=== PATIENT | male | born 1960 | race Hispanic/Latino ===

== ENCOUNTER 2017-11-10 08:42 | Emergency (ER) | payer OTHER, SELFPAY ==
[2017-11-10 09:15] VITALS: BP 129/67; PULSE 61; RESP 19; TEMP 97; O2SAT 98
--- NOTE | 2017-11-10 10:07 | ED PDOC ---
HPI: CCC, URI, Sore Throat Time Seen by Provider: 11/10/17 09:12 Chief Complaint (Nursing): Cough, Cold, Congestion Chief Complaint (Provider): Sore throat History Per: Patient History/Exam Limitations: no limitations Onset/Duration Of Symptoms: Days (x1 week) Current Symptoms Are (Timing): Still Present Location Of Pain: Throat Associated Symptoms: Fever (mild), Sore Throat (difficulty swallowing), Cough, Nasal Congestion Ear Symptoms: Bilateral: None Severity: Mild Pain Scale Rating Of: 4 Additional Complaint(s): Manan Anguiano is a 57 year old male, with no past medical history, who presents to the emergency department complaining of sore throat, congestion, mild cough and fever onset for x1 week. Patient states he had the flu x1 week ago, He took Nyquil and ampicillin for x2 days with some relief but he is still has difficulty swallowing. He denies any shortness of breath. No further medical complaints. PMD: None provided. Past Medical History Reviewed: Historical Data, Nursing Documentation, Vital Signs Vital Signs: Last Vital Signs Temp 97 F L 11/10/17 09:11 Pulse 61 11/10/17 09:11 Resp 19 11/10/17 09:11 BP 129/67 11/10/17 09:11 Pulse Ox 98 11/10/17 10:10 - Medical History PMH: Kidney Stones - Surgical History Other surgeries: Kidney surgery, left eye retina laser surgery - Family History Family History: States: Unknown Family Hx - Social History Current smoker - smoking cessation education provided: No Alcohol: None Drugs: Denies - Home Medications Home Medications: Ambulatory Orders Medication Instructions Recorded Amoxicillin/Clavulanate [Augmentin 1 tab PO BID #14 tab 11/10/17 875 MG-125 MG Tab] Benzocaine/Menthol [Cepacol Sore 1 each MM TID #20 lozenge 11/10/17 Throat Lozenge] - Allergies Allergies/Adverse Reactions: Allergies Allergy/AdvReac Type Severity Reaction Status Date / Time No Known Allergies Allergy Verified 10/04/13 16:03 Review of Systems ROS Statement: Except As Marked, All Systems Reviewed And Found Negative Constitutional: Positive for: Fever (mild) ENT: Positive for: Nose Congestion, Throat Pain (difficulty swallowing) Respiratory: Positive for: Cough (mild). Negative for: Shortness of Breath Physical Exam - Reviewed Nursing Documentation Reviewed: Yes Vital Signs Reviewed: Yes - Physical Exam Appears: Positive for: Well, Non-toxic, No Acute Distress Head Exam: Positive for: ATRAUMATIC, NORMAL INSPECTION Skin: Positive for: Normal Color, Warm, Dry Eye Exam: Positive for: Normal appearance, EOMI ENT: Positive for: Pharyngeal Erythema Neck: Positive for: Normal, Painless ROM, Supple Cardiovascular/Chest: Positive for: Regular Rate, Rhythm. Negative for: Murmur Respiratory: Positive for: Normal Breath Sounds. Negative for: Respiratory Distress Extremity: Positive for: Normal ROM. Negative for: Deformity, Swelling Neurologic/Psych: Positive for: Alert, Oriented - ECG O2 Sat by Pulse Oximetry: 98 (RA) Pulse Ox Interpretation: Normal Medical Decision Making Medical Decision Making: Initial Impression: URI, Tonsilitis Initial Plan: --Influenza A B --Rapid Strep Group A Antigen --reevaluation Scribe Attestation: Documented by Pako Yi, acting as a scribe for Bethanie Hayes MD Provider Scribe Attestation: All medical record entries made by the Scribe were at my direction and personally dictated by me. I have reviewed the chart and agree that the record accurately reflects my personal performance of the history, physical exam, medical decision making, and the department course for this patient. I have also personally directed, reviewed, and agree with the discharge instructions and disposition. Disposition - Clinical Impression Clinical Impression: URI, acute, Tonsillitis - Patient ED Disposition Is Patient to be Admitted: No Doctor Will See Patient In The: Office Counseled Patient/Family Regarding: Studies Performed, Diagnosis, Need For Followup - Disposition Referrals: [facility] [Outside] Disposition: Routine/Home Disposition Time: 11:42 Condition: GOOD Additional Instructions: Take your medications as instructed. Follow up with your PCP in 2-3 days. Prescriptions: Amoxicillin/Clavulanate [Augmentin 875 MG-125 MG Tab] 1 tab PO BID #14 tab Benzocaine/Menthol [Cepacol Sore Throat Lozenge] 1 each MM TID #20 lozenge Instructions: Tonsillitis (ED)
== END 2017-11-10 11:48 | disposition home or self-care (01) ==
LOC: SUPCPDRO 08:42 → H.ER 08:42
DX: J03.90 Acute tonsillitis, unspecified (principal)

== ENCOUNTER 2017-12-28 08:25 | Emergency (ER) | payer SELFPAY ==
[2017-12-28 08:31] VITALS: BMI 26.4
[2017-12-28 08:33] VITALS: BP 126/77; PULSE 65; RESP 20; TEMP 97.7; O2SAT 98
--- NOTE | 2017-12-28 09:45 | ED PDOC ---
HPI: General Adult Time Seen by Provider: 12/28/17 08:55 Chief Complaint (Nursing): Flu-like Symptoms Chief Complaint (Provider): "i feel sick" History Per: Patient History/Exam Limitations: no limitations Onset/Duration Of Symptoms: Hrs Have you had recent travel within the past 21 days to any of the following countries: [place], [place], [place] or [place]?: No Current Symptoms Are (Timing): Still Present Severity: None Additional Complaint(s): 57 y/o male, no significant medical hx as per him, presents complaining of subjective fever, myalgias, nasal congestion, and watery eyes since last night. He also reports a mild nonproductive cough. He reports symptoms gradually started last night. He has not had the flu vaccine for this season. He denies any sick contacts, recent travel, chills, CP/SOB/palpitations, N/V/D/C, urinary symptoms, numbness/tingling. No other active complaints. Past Medical History Vital Signs: Last Vital Signs Temp 97.7 F 12/28/17 08:31 Pulse 65 12/28/17 08:31 Resp 20 12/28/17 08:31 BP 126/77 12/28/17 08:31 Pulse Ox 98 12/28/17 09:46 - Medical History PMH: Kidney Stones - Family History Family History: States: Unknown Family Hx - Home Medications Home Medications: Ambulatory Orders Medication Instructions Recorded Amoxicillin/Clavulanate [Augmentin 1 tab PO BID #14 tab 11/10/17 875 MG-125 MG Tab] Benzocaine/Menthol [Cepacol Sore 1 each MM TID #20 lozenge 11/10/17 Throat Lozenge] - Allergies Allergies/Adverse Reactions: Allergies Allergy/AdvReac Type Severity Reaction Status Date / Time No Known Allergies Allergy Verified 10/04/13 16:03 Review of Systems ROS Statement: Except As Marked, All Systems Reviewed And Found Negative Physical Exam - Reviewed Nursing Documentation Reviewed: Yes Vital Signs Reviewed: Yes - Physical Exam Appears: Positive for: Non-toxic, No Acute Distress Head Exam: Positive for: ATRAUMATIC Skin: Positive for: Warm, Dry Eye Exam: Positive for: EOMI, PERRL, Conjunctival injection, Other (watery discharge ). Negative for: Periorbital swelling, Periorbital tenderness, Scleral icterus ENT: Positive for: Normal ENT Inspection. Negative for: Sinus Pain/Drainage, Pharyngeal Erythema, Tonsillar Exudate Neck: Positive for: Painless ROM, Supple Cardiovascular/Chest: Positive for: Regular Rate, Rhythm, Chest Non Tender. Negative for: Edema, JVD, Murmur Respiratory: Positive for: Normal Breath Sounds. Negative for: Accessory Muscle Use, Crackles, Rales, Rhonchi, Wheezing Pulses-Radial (L): 2+ Pulses-Radial (R): 2+ Gastrointestinal/Abdominal: Positive for: Normal Exam Lymphatic: Negative for: Adenopathy Neurologic/Psych: Positive for: Alert, mail order sorter II-XII, Oriented. Negative for: Motor/Sensory Deficits - ECG O2 Sat by Pulse Oximetry: 98 - Progress ED Course And Treament: suspected viral syndrome/influenza Rapid Flu: positive for flu B Disposition - Clinical Impression Clinical Impression: Influenza B - Patient ED Disposition Is Patient to be Admitted: No - Disposition Referrals: Favio Larson MD [Emergency Midlevel Provider] - Disposition: Routine/Home Disposition Time: 13:42 Condition: IMPROVED Additional Instructions: be sure to drink plenty of fluids get plenty of rest take ibuprofen (advil or motrin) as needed for fever follow up with a primary medical dr at the [facility] in 2-3 days any worsening of symptoms return to the ER for evaluation Instructions: Influenza (ED) Forms: [facility] ([place]), [facility] School/Work Excuse
== END 2017-12-28 13:50 | disposition home or self-care (01) ==
LOC: H.ER 08:25
DX: J10.1 Influenza due to other identified influenza virus with other respiratory manifestations (principal)